=== PATIENT | female | born 2000 | race Caucasian/White ===

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

== ENCOUNTER → 2020-05-30 | Outpatient (CLI) | payer OTHER ==
[2020-06-03 10:07] LABS: CHLAMYDIA TRACHOMATIS, NAA Negative (Negative); NEISSERIA GONORRHOEAE, NAA Negative (Negative)
== END ==
LOC: LAB SRC 08:39 → LAB SHORT 08:39
PROVIDERS: Nurse Practitioner Family
DX: Z72.51 High risk heterosexual behavior (principal)
CPT/HCPCS: 87491; 87591; G0123